=== PATIENT | male | born 1990 | race Caucasian/White ===

== ENCOUNTER 2018-11-14 12:15 | Emergency (ER) | payer OTHER ==
[2018-11-14] MEDS ORDERED: NS 1,000 ML IV ONE (12:49)
[2018-11-14] MEDS ORDERED: KETOROLAC 15 MG/1 ML SDV IVP ONE (12:49)
[2018-11-14] MEDS ORDERED: FAMOTIDINE 20 MG in NS 100 ML IV ONE (12:49)
--- NOTE | 2018-11-14 13:01 | EDPHY ---
H & P Stated Complaint: Left sided abdominal pain x 4 days Time Seen by Provider: 11/14/18 12:37 HPI/ROS: Chief Complaint: Abdominal pain HPI: 28-year-old healthy male presenting with 4 days of worsening left upper abdominal pain. Pain waxes and wanes but never goes away. Currently is a 6/ 10. At worst is a 7/10. He has taken oral antacids such as Tums without relief. No nausea or vomiting. No diarrhea or constipation. Pain occasionally seems to mildly radiate to his left groin. No urinary urgency or frequency. It does occasionally wake him up at night. Does not have a bad taste in the back of his throat. No recent trauma. No recent sore throat or illness. No swollen glands. No cough. No fevers or chills. Does not have a history of similar pain in the past. ROS: 10 systems were reviewed and were negative except those elements noted in the HPI. PMH: Denies Social History: No smoking, no alcohol, no recreational drug use Family History: non-contributory Physical Exam: Gen: Awake, Alert, No Distress HEENT: Nose: no rhinorrhea Eyes: PERRLA, EOMI Mouth: Moist mucosa Neck: Supple, no JVD Chest: nontender, lungs clear to auscultation Heart: S1, S2 normal, no murmur Abd: Soft, patient has tenderness in the left upper quadrant. Mild epigastric tenderness. No splenomegaly, mild guarding Back: no CVA tenderness, no midline tenderness Ext: no edema, non-tender Skin: no rash Neuro: CN II-XII intact, Sensation grossly intact, Strength 5/5 in bilateral upper and lower extremities - Medical/Surgical History Other PMH: none reported Constitutional: Initial Vital Signs Temperature (C) 36.9 C 11/14/18 12:26 Heart Rate 75 11/14/18 12:26 Respiratory Rate 16 11/14/18 12:26 Blood Pressure 147/91 H 11/14/18 12:26 O2 Sat (%) 97 11/14/18 12:26 O2 Delivery Mode Room Air Allergies/Adverse Reactions: cephalexin [From Keflex] Allergy (Verified 11/14/18 12:35) Home Medications: Medication Instructions Recorded NK [No Known Home Meds] 11/14/18 Medical Decision Making ED Course/Re-evaluation: 28-year-old male with left upper abdominal pain with tenderness on exam. There is no splenomegaly or risk factors for splenic injury. Urine is normal. Laboratory evaluations are normal. No risk for pancreatitis or physical exam findings suggestive of pancreatitis. He is somewhat improved after Toradol and Pepcid IV. Will give him GI cocktail and reassess. Patient is feeling improved. Pain is down to a 2 in 10. Laboratory evaluations unremarkable. Symptoms consistent with gastritis versus peptic ulcer disease. Will given instructions for bland diet, continue famotidine over -the-counter and refer to Gastroenterology for further evaluation, possible endoscopy. - Data Points Laboratory Results: 11/14/18 13:05 POC Sodium 142 mEq/L mEq/L (135-145) POC Potassium 3.3 mEq/L mEq/L (3.3-5.0) POC Chloride 107.0 mEq/L mEq/L (97-110) POC Total CO2 27 mEq/L mEq/L (22-31) POC BUN 10 mg/dL mg/dL (7-23) POC Creatinine 1.2 mg/dL mg/dL (0.7-1.3) POC Glucose 100 mg/dL mg/dL (70-100) POC Calcium 9.8 mg/dL mg/dL (8.5-10.4) POC Total Bilirubin 1.3 mg/dL mg/dL (0.1-1.4) POC AST 24 IU/L IU/L (17-59) POC ALT 22 IU/L IU/L (21-72) POC Alk Phosphatase 52 IU/L IU/L (38-126) POC Total Protein 7.8 g/dL g/dL (6.3-8.2) POC Albumin 4.7 g/dL g/dL (3.5-5.0) Medications Given: Discontinued Medications Al Hydroxide/Mg Hydroxide (Maalox Susp) 30 ml PO ONCE ONE Stop: 11/14/18 13:44 Last Admin: 11/14/18 13:54 Dose: 30 ml Sodium Chloride (Ns) 1,000 mls @ 0 mls/hr IV ONCE ONE; Wide Open PRN Reason: Protocol Stop: 11/14/18 12:50 Last Admin: 11/14/18 13:06 Dose: 1,000 mls Famotidine 20 mg/ Sodium (Chloride) 102 mls @ 408 mls/hr IV EDNOW ONE Stop: 11/14/18 13:03 Last Admin: 11/14/18 13:04 Dose: 102 mls Ketorolac Tromethamine (Toradol) 15 mg IVP EDNOW ONE Stop: 11/14/18 12:50 Last Admin: 11/14/18 13:02 Dose: 15 mg Lidocaine (Lidocaine 2% Viscous) 15 ml PO ONCE ONE Stop: 11/14/18 13:44 Last Admin: 11/14/18 13:54 Dose: 15 ml Point of Care Test Results: CBC CBC Collection Date 11/14/18 CBC Collection Time 13:00 WBC 8.77 RBC 5.60 HGB 17.6 HCT 50.2 PLT 209 Neut # 6.06 Neut 69.2 LYMPH # 1.60 LYMPH 18.2 MCV 89.6 Chemistry 11/14/18 13:05 POC Sodium 142 mEq/L mEq/L (135-145) POC Potassium 3.3 mEq/L mEq/L (3.3-5.0) POC Chloride 107.0 mEq/L mEq/L (97-110) POC Total CO2 27 mEq/L mEq/L (22-31) POC BUN 10 mg/dL mg/dL (7-23) POC Creatinine 1.2 mg/dL mg/dL (0.7-1.3) POC Glucose 100 mg/dL mg/dL (70-100) POC Calcium 9.8 mg/dL mg/dL (8.5-10.4) POC Total Bilirubin 1.3 mg/dL mg/dL (0.1-1.4) POC AST 24 IU/L IU/L (17-59) POC ALT 22 IU/L IU/L (21-72) POC Alk Phosphatase 52 IU/L IU/L (38-126) POC Total Protein 7.8 g/dL g/dL (6.3-8.2) POC Albumin 4.7 g/dL g/dL (3.5-5.0) Urine Dip Collection Date 11/14/18 Collection Time 13:05 Specific [place] (1.002-1.030) 1.010 PH (5.0-7.5) 7.0 Leukocytes (Negative) Negative Nitrites (Negative) Negative Protein (Negative) Negative Glucose (Negative) Negative Ketones (Negative) Negative Urobilnogen (0.2-1.0 EU) 0.2 Bilirubin (Negative) Negative Blood (Negative) Negative Departure - Departure Disposition: Home, Routine, Self-Care Clinical Impression: Peptic ulcer disease Condition: Good Instructions: Peptic Ulcer (ED), Diet for Stomach Ulcers and Gastritis (ED) Additional Instructions: I recommend taking famotidine, available [id number], daily according to package instructions. Follow up with waistline joiner overlock in 2-3 days for further evaluation. Return to the emergency department for worsening severe pain, uncontrolled nausea vomiting, dark tarry stools, or any other concerns. Referrals: Loni Guan MD [Primary Care Provider] - As per Instructions Jamari West MD, FACG [Medical Doctor] - As per Instructions
[2018-11-14] MEDS ORDERED: MAG HYDROX/AL HYDROX/SIMETH 30 ML UDCUP PO ONE (13:43)
[2018-11-14] MEDS ORDERED: LIDOCAINE 2% VISCOUS 15 ML UDCUP PO ONE (13:43)
[2018-11-14 14:24] VITALS: BP 122/66
== END 2018-11-14 14:17 | disposition home or self-care (01) ==
LOC: CED 12:15
DX: K27.9 Peptic ulcer, site unspecified, unspecified as acute or chronic, without hemorrhage or perforation (principal)
CPT/HCPCS: 80053-ER; 85025-QW-ER; 96365-ER; 96375-ER; 99284-ER; J1885

== ENCOUNTER → 2018-11-17 | Outpatient (CLI) | payer OTHER | LOC: CIMAGING 11:29 | PROVIDERS: ATTEND Internal Medicine Gastroenterology | DX: R07.89 Other chest pain (principal) | CPT/HCPCS: 71046-PO ==